=== PATIENT | female | born 1990 | race Caucasian/White ===

== ENCOUNTER 2017-02-12 07:40 | Day surgery (SDC) | payer OTHER ==
[2017-02-11 14:00] LABS: HEMATOCRIT 40.3 % (36.0-48.0); HEMOGLOBIN 13.8 g/dL (12.0-16.0)
[2017-02-11 14:14] LABS: CALCIUM, SERUM 9.1 MG/DL (8.5-10.4); CHLORIDE, SERUM 107 MMOL/L (96-112); CREATININE 0.91 MG/DL (0.55-1.02); GFR AFRICAN AMERICAN 100 ML/MIN (>=60); GFR NON AFRICAN AMERICAN 86 ML/MIN (>=60); GLUCOSE, SERUM 89 MG/DL (60-99); POTASSIUM, SERUM 3.4 MMOL/L (3.5-5.3); SODIUM, SERUM 144 MMOL/L (135-148)
[2017-02-11 14:16] LABS: BUN (BLOOD UREA NITROGEN) 11 MG/DL (6-23); CO2 (CARBON DIOXIDE) 27 MMOL/L (24-34)
--- NOTE | ~2017-02-12 | OP ---
Record Of Operation [facility] [address] [place]. [address] NAME: KIERSTEN GARCIA : 88 STATUS : REG [facility] PAT#: [id number] AGE: 26 ADM/REG DATE : 02/12/17 MR#: [id number] REPORT SERV DATE: 02/12/17 DICTATED BY: MIRELLA IBANEZ DATE: 02/12/17 REPORT STATUS : Draft TRANSCRIBED BY: MODL DATE: 02/12/17 DATE OF PROCEDURE: 02/12/2017 PREOPERATIVE DIAGNOSIS: Chronic tonsillitis. POSTOPERATIVE DIAGNOSIS: Chronic tonsillitis. PROCEDURE: Tonsillectomy. SURGEON: Mirella Ibanez M.D. ANESTHESIA: General. COMPLICATIONS: None. COUNTS: All counts were correct following the procedure. ESTIMATED BLOOD LOSS: Minimal. PREOPERATIVE INFORMED CONSENT: We discussed the risks and benefits of the surgery including, but not limited to bleeding, infection, possible postoperative taste distortion, and consent is on the chart. DESCRIPTION OF PROCEDURE: The patient was brought to the operating suite and placed on the operating table in the supine position. General endotracheal anesthesia was initiated without incident. The head and neck were cleaned, prepped and draped in the usual sterile fashion. Following this, a Sabina-Rao retractor was carefully inserted into the oral cavity and used to retract the tongue anteriorly and inferiorly to visualize the oropharynx. Following this, the right superior pole of the tonsil was grasped using a tonsillar tenaculum and retracted medially. Using electrocautery, an incision was made down to the anterior tonsillar pillar. Using sharp and blunt dissection with electrocautery, the tonsil was dissected off the underlying pharyngeal musculature, down to the inferior pole where it was transected and sent for permanent pathology. There was minimal bleeding. In a similar fashion as the right, the left tonsil was removed and sent for permanent pathology. Again, there was minimal bleeding. Suction cautery was then performed using a Brayden dissector and meticulous technique. Meticulous hemostasis was achieved in both tonsillar fossae. The oral cavity was irrigated with sterile saline and suctioned until clear. The patient was taken out of suspension. The Sabina-Rao retractor was removed. The teeth were noted to be in pre-operative condition. The patient was awakened from anesthesia and taken to the recovery room in stable condition. Record Of Operation [facility] [address] [place] [address] NAME: KIERSTEN GARCIA : 88 STATUS : REG [facility] PAT#: [id number] AGE: 26 ADM/REG DATE : 02/12/17 MR#: [id number] REPORT SERV DATE: 02/12/17 DICTATED BY: MIRELLA IBANEZ DATE: 02/12/17 REPORT STATUS : Draft TRANSCRIBED BY: MICHAEL DATE: 02/12/17 EVELIA/MICHAEL Mirella Ibanez M.D. / [id number] CC: Santos Lyons D.O.
--- NOTE | ~2017-02-12 | HP ---
History And Physical [place] [id number] [place]. [address] NAME: KIERSTEN GARCIA : 88 STATUS : [facility]#: [id number] AGE: 26 ADM/REG DATE : 02/12/17 MR#: [id number] REPORT SERV DATE: 02/12/17 DICTATED BY: BINTA TATE DATE: 02/12/17 REPORT STATUS : Cancelled TRANSCRIBED BY: MODJemima DATE: 02/12/17 DATE OF ADMISSION: 02/12/2017 REASON FOR ADMISSION: Seizure postop. HISTORY OF PRESENT ILLNESS: This is a 26-year-old, white female, who underwent a tonsillectomy with Dr. Gregory Langley earlier today. In the operating room, she had five to seven episodes that were observed of seizure-like activity by the nurses in the recovery room. She is transferred to the emergency room. CT scan of the brain was done, and Dr. Berto Szymanski, evaluated her. He got a neurology consult, Neurology, and Laure James, the Neurology nurse practitioner have evaluated the patient. They recommended obtaining an EEG as an outpatient and started on Keppra IV now. Neurologists are concerned for psychogenic versus breakthrough seizures. She did have some childhood seizure activity. No history is obtained from the patient. The patient is withdrawn and will not speak. She was obtunded with treatment. She was given 6 mg of Versed IV plus 10 mg of Valium IV plus 50 mg of propofol, and a propofol drip was started in the recovery room by Anesthesia when the seizures were observed. The patient is still obtunded and unable to give history at this time. PAST MEDICAL HISTORY: She does have some asthma. She has been seen by Dr. Gonzalo Duarte in the past for her wheezing, is on inhalers as well. She does have depression, is on Lexapro. She was out of Lexapro for one day and was going to get it filled today per . The Lexapro was actually more for anxiety and depression. She does have a history of hypertension and is on losartan. She had childhood seizures and also has history of migraine. ALLERGIES: INCLUDE LISINOPRIL. PAST SURGICAL HISTORY: She has had D and C, and now tonsillectomy for recurrent strep infection. SOCIAL HISTORY: She is for 6 months, has not changed her name to her 's name yet. She has two children. Works at [employer]. FAMILY HISTORY: Mother is alive and well. Father in his 40s. She has a brother and two sisters. Daughter had seizures but other first degree family members, seizures symptoms were unknown. Review of systems is not obtained with the patient. She will not awake, and history is obtained from her for the most part. The remainder of the review of systems is undetermined. PHYSICAL EXAMINATION: GENERAL: Obese, white female. VITAL SIGNS: Blood pressure of 135/74, heart rate 61, respiratory rate 18. HEENT: Eyes are conjugate and lids are open. The patient does not move. History And Physical [address] [address] NAME: KIERSTEN GARCIA : 88 STATUS : [facility] PAT#: [id number] AGE: 26 ADM/REG DATE : 02/12/17 MR#: [id number] REPORT SERV DATE: 02/12/17 DICTATED BY: BINTA TATE DATE: 02/12/17 REPORT STATUS : Cancelled TRANSCRIBED BY: MICHAEL DATE: 02/12/17 NECK: No bruit without any JVD. CHEST: Clear. HEART: Regular S1, S2 without murmur, gallop, or click. BREAST: Grossly without mass. ABDOMEN: Soft, nontender. Bowel sounds positive. Obese. EXTREMITIES: No edema. Distal pulses are intact with dorsalis pedis and posterior tibial. DTRs are equal with the knee jerk bilaterally. Toes do not move to plantar stimulation. I am unable to assess motor or sensory as the patient is not alert or awake. SKIN: Without rash, ecchymosis, or bruising. Pharynx is deferred to Dr. Langley. LABORATORY DATA: The sodium is 144, potassium 3.4, chloride 101, CO2 of 27, creatinine was 0.9 with BUN 11, glucose is 100. Hemoglobin 13.8, hematocrit 40.3, hCG negative. Chest x-ray was done which showed no acute cardiopulmonary abnormality. Brain CT scan was done that showed no intracranial abnormality. The CMP showed normal liver function test. Prolactin level was done at 55.8. Yesterday's electrolytes were showing a potassium 3.4, white count 9.7, hemoglobin 13.3, hematocrit 39.5, platelets were 277,000. Potassium had come up to 3.5 today. ASSESSMENT: 1. Spells, possibly seizure, possibly pseudo-seizure. We will start on Keppra and observe EEG next week as an outpatient. Neurology is following. 2. History of asthma. We will continue her aerosol treatments. Her lungs are clear at this point. 3. History of hypertension, continue home medications. 4. Recent tonsillectomy, like today. We will give her the amoxicillin as prescribed by Dr. Langley and hold the pain medicine so she can wake up according to Neurology recommendation. 5. Anxiety. 6. Depression, on Lexapro with one missed dose which may lower the seizure threshold. We will restart this as she does take it regularly at home. PLAN: The patient will be on observation, likely discharged home on the morning of 02/13/2017 if she is able to eat and walk. DB/MICHAEL Binta Tate M.D. / [id number] CC: Yandel Galicia M.D. History And Physical [address] [address] NAME: KIERSTEN GARCIA : 88 STATUS : [facility]#: [id number] AGE: 26 ADM/REG DATE : 02/12/17 MR#: [id number] REPORT SERV DATE: 02/12/17 DICTATED BY: BINTA TATE DATE: 02/12/17 REPORT STATUS : Cancelled TRANSCRIBED BY: MODL DATE: 02/12/17 Gonazlo Duarte D.O.
--- NOTE | ~2017-02-12 | CN ---
Consultation Report [facility] [address] [place]. [address] NAME: KIERSTEN GARCIA : 88 STATUS : [facility]#: [id number] AGE: 26 ADM/REG DATE : 02/12/17 MR#: [id number] REPORT SERV DATE: 02/12/17 DICTATED BY: LAURE MALCOLM DATE: 02/12/17 REPORT STATUS : Cancelled TRANSCRIBED BY: MICHAEL DATE: 02/12/17 NEUROLOGY CONSULTATION DATE OF CONSULTATION: 02/12/2017 REASON FOR CONSULTATION: Seizure. HISTORY OF PRESENT ILLNESS: The patient is a 26-year-old female, who underwent a tonsillectomy and adenoidectomy for recurrent strep infections. She did fine preoperatively, but postoperatively immediately after extubation, she had "seizure like" activity. Apparently, she had anywhere from five to seven episodes of tonic-clonic like seizure. During this time, she was given 6 mg of Versed IV and then 10 mg of Valium IV plus 50 mg of propofol IV, and was placed on a propofol drip. She was never reintubated and managed to keep her O2 saturations within normal range. A prolactin level was drawn and it was 50. [facility]'s emergency room was notified and she was brought over for further evaluation and treatment. Upon arrival, her seizure activity had resolved. She arrived at approximately noon, and had no further seizure activity until 3 p.m. Upon arrival, she was bolused with a 1000 mg Keppra and was placed on 500 mg b.i.d. When questioned more extensively, the patient's mentioned that she had childhood seizure activity. Her mother also has seizures along with her daughter. He does mention that occasionally, she will have "staring off spells," but these only last a few seconds. PAST MEDICAL HISTORY: Asthma, depression and anxiety, childhood seizures, hypertension, and migraine. PAST SURGICAL HISTORY: Tonsillectomy and adenoidectomy, and D and C. HOME MEDICATIONS: Include albuterol inhaler 1 to 2 puffs p.r.n., Symbicort inhaler 2 puffs twice a day, Lexapro 10 mg daily, and Hyzaar 50/12.5 mg daily. ALLERGIES: LISINOPRIL. SOCIAL HISTORY: The patient is . She has one daughter. She works at [employer]. She does not smoke, drink alcohol, or use recreational drugs. FAMILY HISTORY: The patient's mother is 55. She has seizure activity. Her father at the age of 40, cause unknown. She has one brother and two sisters, who are relatively healthy and she has a daughter, who has seizure activity. REVIEW OF SYSTEMS: For pertinent positives, please see HPI. PHYSICAL EXAMINATION: Consultation Report [address] [place]. [address] NAME: KIERSTEN GARCIA : 88 STATUS : [facility] [place] [place] PAT#: [id number] AGE: 26 ADM/REG DATE : 02/12/17 MR#: [id number] REPORT SERV DATE: 02/12/17 DICTATED BY: LAURE MALCOLM DATE: 02/12/17 REPORT STATUS : Cancelled TRANSCRIBED BY: MICHAEL DATE: 02/12/17 GENERAL: The patient is a 26-year-old female, who stands 5 feet 3 inches tall, and weighs 207 pounds. VITAL SIGNS: She is afebrile. Heart rate 61, respiratory rate 16, O2 saturations on room air 98%, and blood pressure 135/74. NEUROLOGIC: The patient is very lethargic. She will awaken to verbal and noxious stimuli. Pupils are 3 mm PERRLA. Cranial nerves appear to be intact. She can move all extremities x4. She does report diminished sensation on the right side when compared to the left. Upper extremity strength is 4/5 on the right and 5/5 on the left. Upper DTRs 1+ bilaterally. Lower extremity strength is 3/5 on the left and a 2/5 on the right. Patellar reflexes are 2+ bilaterally. Plantar reflexes are silent. NECK: No carotid bruits, JVD, or thyromegaly. CHEST: Lung sounds are clear. Diminished in the bases. CARDIAC: Regular rate and rhythm. LABORATORY DATA: H and H are 13.8 and 40.3. BMP is normal except the potassium is 3.4. Beta HCG is negative. ASSESSMENT/PLAN: Seizure versus psychogenic nonepileptic seizure. The patient has been started on Keppra 500 mg b.i.d. This will be in the IV form today, it will be converted to p.o. upon discharge. She will have an outpatient EEG and will be scheduled for outpatient Neurology office visit in one to two weeks after her discharge. She will be counseled on no driving, no bathing, or swimming unsupervised, and be counseled on safety measures. She will be sent to the CDU overnight and admitted underneath the Hospitalist Service. Thank you again for including us in consultation. We will follow with the Hospitalist. KATHLEEN/MICHAEL Laure Malcolm, [facility] / [id number] CC: Santos Lyons D.O.
[~2017-02-12 07:40] MED LIST: HYZAAR 50/12.51 TAB PO; LEXAPRO10 PO; SYMBICORT 160/41 INH INH; VENTOLIN HFA
[2017-02-12] MEDS ORDERED: Z-PAK PO (17:10)
[2017-02-12] MEDS ORDERED: IMITREX100 MG PO (17:11)
[2017-02-12] MEDS ORDERED: TAMIFLU PO (17:11)
[2017-02-12] MEDS ORDERED: LEXAPRO10 PO (17:11)
[2017-02-12] MEDS ORDERED: HYZAAR 50/12.51 TAB PO (17:12)
[2017-02-12] MEDS ORDERED: HYCET 7.5 MG-3473 ML PO (17:13)
[2017-02-12] MEDS ORDERED: AUGMEN400S PO (17:13)
[2017-02-12] MEDS ORDERED: SYMBICORT 160/41 INH INH (17:14)
[2017-02-12] MEDS ORDERED: PROVHFA PO (17:14)
[2017-02-12] MEDS ORDERED: ZOFRAN ODT4 MG PO (17:14)
[2017-02-12] MEDS ORDERED: TRANSSCOP TOP (17:15)
[2017-02-12] MEDS ORDERED: SPIRIVA RESPIMAT INH (17:15)
[2017-02-12] MEDS ORDERED: ALBUTEROL5 INH (17:15)
== END 2017-02-12 23:59 | disposition home or self-care (01) ==
LOC: MSC 07:40
PROVIDERS: Otolaryngology
PROC: 0CTPXZZ Resection of Tonsils, External Approach (ICD-10-PCS; principal; 2017-02-12 08:15)
DX: J03.90 Acute tonsillitis, unspecified (principal); J45.909 Unspecified asthma, uncomplicated; F32.9 Major depressive disorder, single episode, unspecified; F41.9 Anxiety disorder, unspecified; I10 Essential (primary) hypertension; Z88.8 Allergy status to other drugs, medicaments and biological substances; Z98.890 Other specified postprocedural states; Z79.899 Other long term (current) drug therapy
CPT/HCPCS: 80048; 84703; 85014; 85018; 88304; 93005; A9270-GY; J2250; J2405; J3010; J3360

== ENCOUNTER 2017-02-12 11:23 | Inpatient (IN) | payer OTHER ==
--- NOTE | ~2017-02-12 | HP ---
History And Physical [place] [id number] [place]. [address] NAME: KIERSTEN GARCIA : 88 STATUS : DIS IN PAT#: [id number] AGE: 26 ADM/REG DATE : 02/12/17 MR#: [id number] REPORT SERV DATE: 02/17/17 DICTATED BY: BINTA TATE DATE: 02/12/17 REPORT STATUS : Draft TRANSCRIBED BY: MODJemima DATE: 02/12/17 DATE OF ADMISSION: 02/12/2017 REASON FOR ADMISSION: Seizure postop. HISTORY OF PRESENT ILLNESS: This is a 26-year-old, white female, who underwent a tonsillectomy with Dr. Gregory Langley earlier today. In the operating room, she had five to seven episodes that were observed of seizure-like activity by the nurses in the recovery room. She is transferred to the emergency room. CT scan of the brain was done, and Dr. Berto Szymanski, evaluated her. He got a neurology consult, Neurology, and Laure James, the Neurology nurse practitioner have evaluated the patient. They recommended obtaining an EEG as an outpatient and started on Keppra IV now. Neurologists are concerned for psychogenic versus breakthrough seizures. She did have some childhood seizure activity. No history is obtained from the patient. The patient is withdrawn and will not speak. She was obtunded with treatment. She was given 6 mg of Versed IV plus 10 mg of Valium IV plus 50 mg of propofol, and a propofol drip was started in the recovery room by Anesthesia when the seizures were observed. The patient is still obtunded and unable to give history at this time. PAST MEDICAL HISTORY: She does have some asthma. She has been seen by Dr. Gonzalo Duarte in the past for her wheezing, is on inhalers as well. She does have depression, is on Lexapro. She was out of Lexapro for one day and was going to get it filled today per . The Lexapro was actually more for anxiety and depression. She does have a history of hypertension and is on losartan. She had childhood seizures and also has history of migraine. ALLERGIES: INCLUDE LISINOPRIL. PAST SURGICAL HISTORY: She has had D and C, and now tonsillectomy for recurrent strep infection. SOCIAL HISTORY: She is for 6 months, has not changed her name to her 's name yet. She has two children. Works at [employer]. FAMILY HISTORY: Mother is alive and well. Father in his 40s. She has a brother and two sisters. Daughter had seizures but other first degree family members, seizures symptoms were unknown. Review of systems is not obtained with the patient. She will not awake, and history is obtained from her for the most part. The remainder of the review of systems is undetermined. PHYSICAL EXAMINATION: GENERAL: Obese, white female. VITAL SIGNS: Blood pressure of 135/74, heart rate 61, respiratory rate 18. HEENT: Eyes are conjugate and lids are open. The patient does not move. History And Physical [address] [place]. [address] NAME: KIERSTEN GARCIA : 88 STATUS : DIS IN PAT#: [id number] AGE: 26 ADM/REG DATE : 02/12/17 MR#: [id number] REPORT SERV DATE: 02/17/17 DICTATED BY: BINTA TATE DATE: 02/12/17 REPORT STATUS : Draft TRANSCRIBED BY: MICHAEL DATE: 02/12/17 NECK: No bruit without any JVD. CHEST: Clear. HEART: Regular S1, S2 without murmur, gallop, or click. BREAST: Grossly without mass. ABDOMEN: Soft, nontender. Bowel sounds positive. Obese. EXTREMITIES: No edema. Distal pulses are intact with dorsalis pedis and posterior tibial. DTRs are equal with the knee jerk bilaterally. Toes do not move to plantar stimulation. I am unable to assess motor or sensory as the patient is not alert or awake. SKIN: Without rash, ecchymosis, or bruising. Pharynx is deferred to Dr. Langley. LABORATORY DATA: The sodium is 144, potassium 3.4, chloride 101, CO2 of 27, creatinine was 0.9 with BUN 11, glucose is 100. Hemoglobin 13.8, hematocrit 40.3, hCG negative. Chest x-ray was done which showed no acute cardiopulmonary abnormality. Brain CT scan was done that showed no intracranial abnormality. The CMP showed normal liver function test. Prolactin level was done at 55.8. Yesterday's electrolytes were showing a potassium 3.4, white count 9.7, hemoglobin 13.3, hematocrit 39.5, platelets were 277,000. Potassium had come up to 3.5 today. ASSESSMENT: 1. Spells, possibly seizure, possibly pseudo-seizure. We will start on Keppra and observe EEG next week as an outpatient. Neurology is following. 2. History of asthma. We will continue her aerosol treatments. Her lungs are clear at this point. 3. History of hypertension, continue home medications. 4. Recent tonsillectomy, like today. We will give her the amoxicillin as prescribed by Dr. Langley and hold the pain medicine so she can wake up according to Neurology recommendation. 5. Anxiety. 6. Depression, on Lexapro with one missed dose which may lower the seizure threshold. We will restart this as she does take it regularly at home. PLAN: The patient will be on observation, likely discharged home on the morning of 02/13/2017 if she is able to eat and walk. DB/MICHAEL Binta Tate M.D. / [id number] CC: Michael Lozano MD History And Physical [address] [address] NAME: KIERSTEN GARCIA : 88 STATUS : DIS IN PAT#: [id number] AGE: 26 ADM/REG DATE : 02/12/17 MR#: [id number] REPORT SERV DATE: 02/17/17 DICTATED BY: BINTA TATE DATE: 02/12/17 REPORT STATUS : Draft TRANSCRIBED BY: MODL DATE: 02/12/17 Gonzalo Duarte D.O.
--- NOTE | ~2017-02-12 | CN ---
Consultation Report [facility] [address] [place]. [address] NAME: KIERSTEN GARCIA : 88 STATUS : DIS IN PAT#: [id number] AGE: 26 ADM/REG DATE : 02/12/17 MR#: [id number] REPORT SERV DATE: 02/17/17 DICTATED BY: LAURE MALCOLM DATE: 02/12/17 REPORT STATUS : Draft TRANSCRIBED BY: MICHAEL DATE: 02/12/17 NEUROLOGY CONSULTATION DATE OF CONSULTATION: 02/12/2017 REASON FOR CONSULTATION: Seizure. HISTORY OF PRESENT ILLNESS: The patient is a 26-year-old female, who underwent a tonsillectomy and adenoidectomy for recurrent strep infections. She did fine preoperatively, but postoperatively immediately after extubation, she had "seizure like" activity. Apparently, she had anywhere from five to seven episodes of tonic-clonic like seizure. During this time, she was given 6 mg of Versed IV and then 10 mg of Valium IV plus 50 mg of propofol IV, and was placed on a propofol drip. She was never reintubated and managed to keep her O2 saturations within normal range. A prolactin level was drawn and it was 50. [facility]'s emergency room was notified and she was brought over for further evaluation and treatment. Upon arrival, her seizure activity had resolved. She arrived at approximately noon, and had no further seizure activity until 3 p.m. Upon arrival, she was bolused with a 1000 mg Keppra and was placed on 500 mg b.i.d. When questioned more extensively, the patient's mentioned that she had childhood seizure activity. Her mother also has seizures along with her daughter. He does mention that occasionally, she will have "staring off spells," but these only last a few seconds. PAST MEDICAL HISTORY: Asthma, depression and anxiety, childhood seizures, hypertension, and migraine. PAST SURGICAL HISTORY: Tonsillectomy and adenoidectomy, and D and C. HOME MEDICATIONS: Include albuterol inhaler 1 to 2 puffs p.r.n., Symbicort inhaler 2 puffs twice a day, Lexapro 10 mg daily, and Hyzaar 50/12.5 mg daily. ALLERGIES: LISINOPRIL. SOCIAL HISTORY: The patient is . She has one daughter. She works at [employer]. She does not smoke, drink alcohol, or use recreational drugs. FAMILY HISTORY: The patient's mother is 55. She has seizure activity. Her father at the age of 40, cause unknown. She has one brother and two sisters, who are relatively healthy and she has a daughter, who has seizure activity. REVIEW OF SYSTEMS: For pertinent positives, please see HPI. PHYSICAL EXAMINATION: GENERAL: The patient is a 26-year-old female, who stands 5 feet 3 inches tall, and weighs Consultation Report [place] [id number] [facility] [place]. [address] NAME: KIERSTEN GARCIA : 88 STATUS : DIS IN PAT#: [id number] AGE: 26 ADM/REG DATE : 02/12/17 MR#: [id number] REPORT SERV DATE: 02/17/17 DICTATED BY: LAURE MALCOLM DATE: 02/12/17 REPORT STATUS : Draft TRANSCRIBED BY: MICHAEL DATE: 02/12/17 207 pounds. VITAL SIGNS: She is afebrile. Heart rate 61, respiratory rate 16, O2 saturations on room air 98%, and blood pressure 135/74. NEUROLOGIC: The patient is very lethargic. She will awaken to verbal and noxious stimuli. Pupils are 3 mm PERRLA. Cranial nerves appear to be intact. She can move all extremities x4. She does report diminished sensation on the right side when compared to the left. Upper extremity strength is 4/5 on the right and 5/5 on the left. Upper DTRs 1+ bilaterally. Lower extremity strength is 3/5 on the left and a 2/5 on the right. Patellar reflexes are 2+ bilaterally. Plantar reflexes are silent. NECK: No carotid bruits, JVD, or thyromegaly. CHEST: Lung sounds are clear. Diminished in the bases. CARDIAC: Regular rate and rhythm. LABORATORY DATA: H and H are 13.8 and 40.3. BMP is normal except the potassium is 3.4. Beta HCG is negative. ASSESSMENT/PLAN: Seizure versus psychogenic nonepileptic seizure. The patient has been started on Keppra 500 mg b.i.d. This will be in the IV form today, it will be converted to p.o. upon discharge. She will have an outpatient EEG and will be scheduled for outpatient Neurology office visit in one to two weeks after her discharge. She will be counseled on no driving, no bathing, or swimming unsupervised, and be counseled on safety measures. She will be sent to the CDU overnight and admitted underneath the Hospitalist Service. Thank you again for including us in consultation. We will follow with the Hospitalist. KATHLEEN/MICHAEL Laure Malcolm [facility]P-BC / [id number] CC: MD Gonzalo Cummins D.O.
--- NOTE | ~2017-02-12 | DS ---
Discharge Summary [address] [id number] [place]. [address] NAME: KIERSTEN GARCIA : 88 STATUS : DIS Carito PAT#: [id number] AGE: 26 ADM/REG DATE : 02/12/17 MR#: [id number] REPORT SERV DATE: 02/15/17 DICTATED BY: DATE: REPORT STATUS : Draft TRANSCRIBED BY: MODL DATE: 02/14/17 ADMISSION DATE: 02/12/2017 DISCHARGE DATE: 02/14/2017 DISCHARGE DIAGNOSES: 1. Status post tonsillectomy. 2. Seizures, psychogenic versus nonepileptic. 3. Depression. 4. Asthma. 5. Dizziness. 6. Bradycardia. 7. Conversion disorder. CONSULTING PHYSICIAN: Include Dr. Cesar Fernandez with Neurology. DISCHARGE MEDICATIONS: Include Augmentin 1000 mg p.o. b.i.d., Lexapro 10 mg p.o. daily, Spiriva Respimat two puffs inhalation daily, Symbicort 160/4.5 two puffs inhalation b.i.d., Imitrex 100 mg p.o. b.i.d. p.r.n. for migraines, Hycet 7.5 mg/325 mg 5-15 mL p.o. q.4 hours p.r.n. for pain, Zofran 4 mg ODT q.4 hours p.r.n. for nausea, albuterol MDI two inhalations p.o. p.r.n. for shortness of breath, Keppra 500 mg p.o. b.i.d. IMAGING: Include CT of the brain without contrast, which was unremarkable and no acute intracranial pathology was noted. MRI of the brain, normal noncontrast MRI appearance of the brain was noted per the radiologist. MRA [place] demonstrates variant anatomy, trifurcation of the A2 segments and is otherwise negative. Negative MRA of the neck. For full H and P, please refer to Dr. Amarjit Langston's dictation on 02/12/2017. Please also see Ms. Laure James's consultation dictation on 02/12/2017 for Neurology. HOSPITAL COURSE/PROBLEM LIST: The patient underwent an outpatient tonsillectomy on 02/12/2017, subsequently developing seizure activity postop five to seven separate episodes. She was giving multiple drugs, including Ativan and propofol drip. Neurology was consulted for the seizure-like activity. The patient was placed on Keppra. She has not had any seizure activity since the ; however, she has developed other neurological symptoms, including right-sided weakness and tingling as well as dizziness. She has been afebrile. She did have a white blood cell count of 18,000 yesterday; however, today is down to 14.4. She has been afebrile and has a nontoxic appearance, and Neurology is followed along with a full workup, including infectious causes. The patient was scheduled for a lumbar puncture as well as MRI of the neck in a plethora of labs; however, the patient is feeling much better this morning. She is able to ambulate to the bathroom without difficulty. She reports some dizziness. We did orthostatic vital signs, which were negative. She does not want a lumbar puncture performed. Discussed discharging her with Dr. Cesar Fernandez, who agrees that it is safe to discharge the patient home with followup with Neurology in one to two weeks. She will have an EEG performed this week prior to her appointment. She has had bradycardia since she has been here and heart rate as low as 39 while sleeping. She does have possible sleep apnea. She has not been diagnosed; however, she has had difficulty with tonsillitis up to six times a year and she reports having sleep apnea, but she has not had a Discharge Summary [address] [id number] NAME: KIERSTEN GARCIA : 88 STATUS : DIS [place] PAT#: [id number] AGE: 26 ADM/REG DATE : 02/12/17 MR#: [id number] REPORT SERV DATE: 02/15/17 DICTATED BY: DATE: REPORT STATUS : Draft TRANSCRIBED BY: MODL DATE: 02/14/17 sleep study; however, this could be a cause. She could also have increased vagal tone. She is not very physically active; however, she has sinus bradycardia on 12-lead EKG. She is not having any heart blocks, AV keshav dysfunction and after discussing the findings with Dr. Michael Lozano, it was decided that it was safe to discharge the patient home. She will follow up with Dr. Langley on 02/25/2017 and I will also have the patient follow up with her primary care provider, Dr. Gonzalo Duarte within one week. The patient normally takes Hyzaar for her blood pressure; however, her systolic blood pressure has been 110-120 here. I will hold this medication and again, she can follow up with her primary care provider who can re- evaluate whether he wants to start this medication back or not. Her asthma is stable and I will continue her on her home medication regimen. The patient was instructed to return to the hospital if she develops worsening symptoms as well as fever, chills, worsening dizziness, or weakness on the right side. She is currently hemodynamically stable. Last blood pressure 120/59, heart rate 54, temperature 98.4, respirations 16, O2 saturation 95% on room air. CLR/MODL Erik Desai NP / [id number] CC: MD Gonzalo Cummins D.O. Jack Greer, M.D. Chun C. Huang, MD
[2017-02-12 11:25] LABS: BASOPHILS 0.3 %; BASOPHILS ABSOLUTE 0.03 10/3/uL (0.0-0.16); EOSINOPHILS 0.4 %; EOSINOPHILS ABSOLUTE 0.04 10/3/uL (0.0-0.53); ER CBC TAT 0 Hrs 07 Mins; HEMATOCRIT 39.5 % (36.0-48.0); HEMOGLOBIN 13.3 g/dL (12.0-16.0); IMMATURE GRANULOCYTES 0.3 %; IMMATURE GRANULOCYTES ABSOLUTE 0.03 10/3/uL (0.0-0.11); LYMPHOCYTES 15.1 %; LYMPHOCYTES ABSOLUTE 1.46 10/3/uL (0.67-4.30); MANUAL DIFF NO %; MEAN CORPUS HGB CONC 33.7 g/dL (32.0-36.0); MEAN CORPUSCULAR HEMOGLOB 30.2 pg (26.0-34.0); MEAN CORPUSCULAR VOLUME 89.6 fL (80-100); MEAN PLATELET VOLUME 8.3 fL (9.2-13.0); MONOCYTES 2.7 %; MONOCYTES ABSOLUTE 0.26 10/3/uL (0.21-1.20); NEUTROPHILS 81.2 %; NEUTROPHILS ABSOLUTE 7.85 10/3/uL (2.02-8.40); PLATELET COUNT 277 10/3/uL (150-400); RED CELL COUNT 4.41 10/6/uL (4.0-5.6); WHITE BLOOD CELLS 9.7 10/3/uL (4.5-10.5)
[2017-02-12 11:38] LABS: A/G RATIO 0.9 (0.7-1.9); ALBUMIN 3.5 G/DL (3.5-5.0); ALKALINE PHOSPHATASE 80 U/L (45-117); BUN (BLOOD UREA NITROGEN) 10 MG/DL (6-23); CALCIUM, SERUM 8.8 MG/DL (8.5-10.4); CHLORIDE, SERUM 108 MMOL/L (96-112); CO2 (CARBON DIOXIDE) 23 MMOL/L (24-34); CREATININE 0.85 MG/DL (0.55-1.02); GFR AFRICAN AMERICAN 109 ML/MIN (>=60); GFR NON AFRICAN AMERICAN 94 ML/MIN (>=60); GLUCOSE, SERUM 94 MG/DL (60-99); POTASSIUM, SERUM 3.5 MMOL/L (3.5-5.3); SGOT(AST) 11 U/L (5-40); SGPT(ALT) 23 U/L (5-65); SODIUM, SERUM 144 MMOL/L (135-148); TOTAL BILIRUBIN 0.4 MG/DL (0-1.2); TOTAL PROTEIN 7.5 G/DL (6.0-8.5)
[2017-02-12 11:52] LABS: PROLACTIN 55.8 NG/ML
[2017-02-12] MEDS ORDERED: Z-PAK PO (17:10)
[2017-02-12] MEDS ORDERED: LEXAPRO10 PO (17:11)
[2017-02-12] MEDS ORDERED: TAMIFLU PO (17:11)
[2017-02-12] MEDS ORDERED: IMITREX100 MG PO (17:11)
[2017-02-12] MEDS ORDERED: HYZAAR 50/12.51 TAB PO (17:12)
[2017-02-12] MEDS ORDERED: HYCET 7.5 MG-3473 ML PO (17:13)
[2017-02-12] MEDS ORDERED: AUGMEN400S PO (17:13)
[2017-02-12] MEDS ORDERED: ZOFRAN ODT4 MG PO (17:14)
[2017-02-12] MEDS ORDERED: SYMBICORT 160/41 INH INH (17:14)
[2017-02-12] MEDS ORDERED: PROVHFA PO (17:14)
[2017-02-12] MEDS ORDERED: ALBUTEROL5 INH (17:15)
[2017-02-12] MEDS ORDERED: SPIRIVA RESPIMAT INH (17:15)
[2017-02-12] MEDS ORDERED: TRANSSCOP TOP (17:15)
[2017-02-13 03:18] LABS: BASOPHILS 0 %; EOSINOPHILS 0 %; HEMATOCRIT 40.3 % (36.0-48.0); HEMOGLOBIN 13.8 g/dL (12.0-16.0); IMMATURE GRANULOCYTES 0.2 %; IMMATURE GRANULOCYTES ABSOLUTE 0.03 10/3/uL (0.0-0.11); LYMPHOCYTES 4.8 %; LYMPHOCYTES ABSOLUTE 0.87 10/3/uL (0.67-4.30); MEAN CORPUS HGB CONC 34.2 g/dL (32.0-36.0); MEAN CORPUSCULAR HEMOGLOB 30.4 pg (26.0-34.0); MEAN CORPUSCULAR VOLUME 88.8 fL (80-100); MEAN PLATELET VOLUME 8.5 fL (9.2-13.0); MONOCYTES 2.5 %; MONOCYTES ABSOLUTE 0.45 10/3/uL (0.21-1.20); NEUTROPHILS 92.5 %; NEUTROPHILS ABSOLUTE 16.72 10/3/uL (2.02-8.40); PLATELET COUNT 338 10/3/uL (150-400); RBC DISTRIBUTION WIDTH 12.9 % (12.0-16.0); RED CELL COUNT 4.54 10/6/uL (4.0-5.6)
[2017-02-13 03:19] LABS: MANUAL DIFF NO %; WHITE BLOOD CELLS 18.1 10/3/uL (4.5-10.5)
[2017-02-13 03:24] LABS: INTERNATIONAL NORMAL RATI 1.1 UNITS (-); PARTIAL THROMBO TIME 27.5 SEC (22.5-37.2); PROTIME (NOT ORD) 14.5 SEC (12.0-14.5)
[2017-02-13 04:01] LABS: BUN (BLOOD UREA NITROGEN) 9 MG/DL (6-23); CALCIUM, SERUM 9.4 MG/DL (8.5-10.4); CHLORIDE, SERUM 105 MMOL/L (96-112); CO2 (CARBON DIOXIDE) 27 MMOL/L (24-34); CREATININE 0.73 MG/DL (0.55-1.02); FREE T4 1.14 NG/DL (0.76-1.46); GFR AFRICAN AMERICAN 131 ML/MIN (>=60); GFR NON AFRICAN AMERICAN 113 ML/MIN (>=60); SODIUM, SERUM 141 MMOL/L (135-148)
[2017-02-13 04:04] LABS: FOLATE 16.7 NG/ML (>5.2); GLUCOSE, SERUM 118 MG/DL (60-99); ULTRASENSITIVE TSH 0.365 MCIU/ML (0.358-3.740)
[2017-02-14 05:55] LABS: BASOPHILS 0 %; EOSINOPHILS 0 %; HEMATOCRIT 42.4 % (36.0-48.0); HEMOGLOBIN 14.4 g/dL (12.0-16.0); IMMATURE GRANULOCYTES 0.2 %; IMMATURE GRANULOCYTES ABSOLUTE 0.03 10/3/uL (0.0-0.11); LYMPHOCYTES 5.5 %; LYMPHOCYTES ABSOLUTE 0.81 10/3/uL (0.67-4.30); MEAN CORPUSCULAR HEMOGLOB 30.4 pg (26.0-34.0); MEAN CORPUSCULAR VOLUME 89.5 fL (80-100); MEAN PLATELET VOLUME 8.7 fL (9.2-13.0); MONOCYTES 0.9 %; MONOCYTES ABSOLUTE 0.14 10/3/uL (0.21-1.20); NEUTROPHILS 93.4 %; NEUTROPHILS ABSOLUTE 13.79 10/3/uL (2.02-8.40); PLATELET COUNT 369 10/3/uL (150-400); RBC DISTRIBUTION WIDTH 12.7 % (12.0-16.0); RED CELL COUNT 4.74 10/6/uL (4.0-5.6); WHITE BLOOD CELLS 14.8 10/3/uL (4.5-10.5)
[2017-02-14 05:59] LABS: MANUAL DIFF NO %
[2017-02-14 06:21] LABS: C-REACTIVE PROTEIN 5.7 MG/L (<8.0); FREE T4 1.31 NG/DL (0.76-1.46); ULTRASENSITIVE TSH 0.494 MCIU/ML (0.358-3.740)
[2017-02-14 07:09] LABS: SED RATE 25 MM/HR (0-20)
[2017-02-14] MEDS ORDERED: KEPPRA500 PO (10:57)
[2017-02-17 00:43] LABS: ALDOLASE 7.4 U/L (1.2-7.6)
== END 2017-02-14 14:25 | disposition home or self-care (01) | DRG 989 ==
LOC: ER 11:23 → 7NO 18:44
PROVIDERS: Hospitalist; Internal Medicine; Nurse Practitioner; Psychiatry & Neurology Neurology
PROC: 0CTPXZZ Resection of Tonsils, External Approach (ICD-10-PCS; principal; 2017-02-12)
DX: G40.89 Other seizures (principal); I10 Essential (primary) hypertension; J03.01 Acute recurrent streptococcal tonsillitis; F32.9 Major depressive disorder, single episode, unspecified; J45.909 Unspecified asthma, uncomplicated; R42 Dizziness and giddiness; R00.1 Bradycardia, unspecified; G47.30 Sleep apnea, unspecified; E66.9 Obesity, unspecified; F41.9 Anxiety disorder, unspecified; Z68.36 Body mass index [BMI] 36.0-36.9, adult; J35.01 Chronic tonsillitis
CPT/HCPCS: 70450; 70544; 70548; 70551-52; 71010; 80048; 80053; 82085; 82140; 82164; 82550; 82607; 82746; 84146; 84439; 84443; 84703; 85014; 85018; 85025; 85610; 85652; 85730; 86140; 86592; 87389; 88304; 93005; 94640; 96365; 99285; A9270-GY; J1885; J1953; J2250; J2405; J2930; J3010; J3360; J3411